=== PATIENT | female | born 1955 | race Caucasian/White ===

== ENCOUNTER → 2017-08-09 | Outpatient (CLI) | payer OTHER ==
[~2017-08-09] MED LIST: ACET500; ALBU90OI INH; ASPI81CH PO; ATORVASTATIN CA20 MG PO; BUPR100ER PO; CALCAVITD PO; FERR325 PO; FLUT110OIA INH; FURO20 PO; GABA300 PO; HYDR-86 PO; IBUP400 PO; IBUP800 PO; Lisinopril2.5 MG; NIFE60ER PO; OMEP20ER; Prinivil10 MG PO; RANI150 PO; SULTRIDS PO; TRAM50 PO; TRAZ100 PO; TRAZ50 PO
== END | disposition home or self-care (01) ==
LOC: LAB UCHC 17:17
DX: R35.0 Frequency of micturition (principal)
CPT/HCPCS: 87077; 87086; 87186

== ENCOUNTER → 2017-09-02 | Outpatient (CLI) | payer OTHER | END | disposition home or self-care (01) | LOC: LAB UCHC 12:22 | DX: R15.9 Full incontinence of feces (principal) | CPT/HCPCS: 87015; 87045; 87046; 87177; 87205; 87209; 87493; 87899 ==

== ENCOUNTER → 2017-11-17 | Outpatient (CLI) | payer OTHER | END | disposition home or self-care (01) | LOC: PLD 11:34 → LAB SHORT 11:34 | DX: C44.722 Squamous cell carcinoma of skin of right lower limb, including hip (principal) | CPT/HCPCS: 88305 ==

== ENCOUNTER → 2018-11-08 | Outpatient (CLI) | payer OTHER | END | disposition home or self-care (01) | LOC: PLD 08:30 → LAB SHORT 08:30 | DX: D04.39 Carcinoma in situ of skin of other parts of face (principal) | CPT/HCPCS: 88305 ==

== ENCOUNTER → 2019-06-14 | Outpatient (CLI) | payer OTHER ==
[2019-06-14 19:34] LABS: BASOPHILS ABSOLUTE AUTO 0.05 K/mm3 (0.00-0.23); BASOPHILS PERCENT AUTO 1 % (0-2); EOSINOPHILS ABSOLUTE AUTO 0.31 K/mm3 (0.00-0.68); EOSINOPHILS PERCENT AUTO 5 % (0-6); Hematocrit 33.5 % (33.0-51.0); Hemoglobin 10.8 g/dL (11.5-16.0); IMMATURE GRAN ABSOLUTE AUTO 0.01 K/mm3 (0.00-0.10); IMMATURE GRAN PERCENT AUTO 0 % (0-1); LYMPHOCYTES ABSOLUTE AUTO 1.42 K/mm3 (0.84-5.20); LYMPHOCYTES PERCENT AUTO 24 % (21-46); MONOCYTES ABSOLUTE AUTO 0.41 K/mm3 (0.16-1.47); MONOCYTES PERCENT AUTO 7 % (4-13); Mean Corpuscular HGB 32.3 pg (26.0-34.0); Mean Corpuscular HGB Conc 32.2 g/dL (31.5-36.5); Mean Corpuscular Volume 100 fL (80-100); NEUTROPHILS ABSOLUTE AUTO 3.61 K/mm3 (1.96-9.15); NEUTROPHILS PERCENT AUTO 62 % (41-73); Platelet Count 253 K/mm3 (150-400); RDW Coefficient Variation 12.1 % (11.7-14.2); RDW Standard Deviation 44.4 fL (35.1-46.3); Red Blood Cell Count 3.34 M/mm3 (3.80-5.20); White Blood Cell Count 5.81 K/mm3 (4.00-11.30)
[2019-06-14 19:58] LABS: Bun/Creatinine Ratio 22.5 (12.0-20.0); Calcium, Blood 8.3 mg/dL (8.5-10.1); Creatinine, Blood 1.42 mg/dL (0.40-1.00); Potassium, Blood 4.7 mmol/L (3.5-5.5)
== END | disposition home or self-care (01) ==
LOC: LAB UCHC 15:25 → LAB SHORT 15:25
PROVIDERS: Podiatrist Foot & Ankle Surgery
DX: Z01.812 Encounter for preprocedural laboratory examination (principal); M77.40 Metatarsalgia, unspecified foot; M77.9 Enthesopathy, unspecified
CPT/HCPCS: 36415; 80048; 85025

== ENCOUNTER → 2020-09-03 | Outpatient (CLI) | payer OTHER ==
[~2020-09-03] MED LIST changes: +ACET500 PO; -ASPI81CH PO; +Aspirin EC81 MG PO; +CENTRUM SILVER1 EAC2 PO; +CRANBERRY CONC1 EAC1 PO; +DOCU100 PO; +DULO60 PO; -FLUT110OIA INH; +FOLI1 PO; +Flovent 220 Ora12 GM INH; +HYDRA25 PO; +LISI10 PO; +LOPE2C PO; +Loratadine10 MG PO; +NITR100CA PO; -OMEP20ER; +OMEP20ER PO; +ONDA4ODT MM; +POTA8; +PROBIOTIC250 MG PO; +SODCHL1 PO; +TIOT18 INH; +VITAMIN B1 PO
[2020-09-04 14:10] LABS: HPV 16 Negative (Negative); HPV 18 Negative (Negative); HPV OTHER HR TYPES Negative (Negative)
== END | disposition home or self-care (01) ==
LOC: LAB SHORT 14:22 → LAB 14:22
PROVIDERS: Physician Assistant
DX: Z01.419 Encounter for gynecological examination (general) (routine) without abnormal findings (principal)
CPT/HCPCS: 87624; G0123

== ENCOUNTER 2020-10-20 08:20 | Day surgery (SDC) | payer OTHER ==
[~2020-10-20] VITALS: Ht 157.5 cm; Wt 69.4 kg
[~2020-10-20 08:20] MED LIST changes: -CRANBERRY CONC1 EAC1 PO; -DOCU100 PO; -HYDRA25 PO; -NITR100CA PO; -ONDA4ODT MM; -SODCHL1 PO
--- NOTE | 2020-10-20 11:41 | NUR ---
10/20/20 1141 SHITAL MAHONEY History, Chart, Medications and Allergies reviewed before start of procedure. 3-LEAD EKG REVIEWED WITH PHYSICIAN PRIOR TO START OF PROCEDURE. O2 VIA N/C INTACT THROUGHOUT SEDATION/PROCEDURE. MONITOR INTACT WITH CONTINUOUS PULSE OXIMETRY AND INTERMITTENT BP. PATIENT DETERMINED TO BE ASA APPROPRIATE FOR PROPOFOL SEDATION PRIOR TO START OF PROCEDURE BY DR. DELGADO.
--- NOTE | 2020-10-20 13:03 | NUR ---
PT TOLERATES FOOD AND DRINK s DIFFICULTY. NO TROUBLE SWALLING NOTED. DENIES ABD PAIN. GIVEN DC INSTRUCTIONS. VERBALIZES AN UNDERSTANDING s QUESTIONS. IV DC'D, CATH INTACT AND PRESSURE DRESSING APPLIED. PT DRESSES SELF s DIFFICULTY. TO AND FROM RESTROOM VIA WC. OTD IN NAD VIA WC, ESCORTED BY RN. S/O RIDE HOME.
== END 2020-10-20 23:24 | disposition home or self-care (01) ==
LOC: ORSCMMR 08:20 → ORD 09:30 → ORSCMMR 09:30
PROVIDERS: Internal Medicine Gastroenterology
PROC: 0DJD8ZZ Inspection of Lower Intestinal Tract, Via Natural or Artificial Opening Endoscopic (ICD-10-PCS; principal; 2020-10-20 09:30)
PROC: 0DB58ZX Excision of Esophagus, Via Natural or Artificial Opening Endoscopic, Diagnostic (ICD-10-PCS; principal; 2020-10-20 09:30)
DX: R13.14 Dysphagia, pharyngoesophageal phase (principal); K21.00 Gastro-esophageal reflux disease with esophagitis, without bleeding; B37.81 Candidal esophagitis; K44.9 Diaphragmatic hernia without obstruction or gangrene; Z12.11 Encounter for screening for malignant neoplasm of colon; K57.30 Diverticulosis of large intestine without perforation or abscess without bleeding; Z86.010 Personal history of colon polyps; Z86.73 Personal history of transient ischemic attack (TIA), and cerebral infarction without residual deficits; I10 Essential (primary) hypertension; E78.00 Pure hypercholesterolemia, unspecified; F32.9 Major depressive disorder, single episode, unspecified; J44.9 Chronic obstructive pulmonary disease, unspecified; Z87.891 Personal history of nicotine dependence; Z79.82 Long term (current) use of aspirin; Z79.899 Other long term (current) drug therapy
CPT/HCPCS: 43239; G0105; 88305; 88312; A9270; J2250; J2704; J7120

== ENCOUNTER 2020-12-02 22:34 | Inpatient (IN) | payer MEDICARE, OTHER ==
[~2020-12-02] VITALS: Ht 157.5 cm; Wt 66.5 kg
[2020-12-03 00:30] LABS: BASOPHILS ABSOLUTE AUTO 0.01 K/mm3 (0.00-0.23); BASOPHILS PERCENT AUTO 0 % (0-2); EOSINOPHILS ABSOLUTE AUTO 0.04 K/mm3 (0.00-0.68); EOSINOPHILS PERCENT AUTO 1 % (0-6); Hematocrit 34.3 % (33.0-51.0); Hemoglobin 11.7 g/dL (11.5-16.0); IMMATURE GRAN ABSOLUTE AUTO 0.04 K/mm3 (0.00-0.10); IMMATURE GRAN PERCENT AUTO 1 % (0-1); LYMPHOCYTES ABSOLUTE AUTO 1.31 K/mm3 (0.84-5.20); LYMPHOCYTES PERCENT AUTO 22 % (21-46); MONOCYTES ABSOLUTE AUTO 0.41 K/mm3 (0.16-1.47); MONOCYTES PERCENT AUTO 7 % (4-13); Mean Corpuscular HGB 32.8 pg (26.0-34.0); Mean Corpuscular HGB Conc 34.1 g/dL (31.5-36.5); Mean Corpuscular Volume 96 fL (80-100); Mean Platelet Volume 8.6 fL (9.1-12.4); NEUTROPHILS ABSOLUTE AUTO 4.18 K/mm3 (1.96-9.15); NEUTROPHILS PERCENT AUTO 70 % (41-73); Platelet Count 222 K/mm3 (150-400); RDW Coefficient Variation 11.9 % (11.7-14.2); RDW Standard Deviation 42.3 fL (35.1-46.3); Red Blood Cell Count 3.57 M/mm3 (3.80-5.20); White Blood Cell Count 5.99 K/mm3 (4.00-11.30)
[2020-12-03 00:38] LABS: Source, Urine Clean Catch
[2020-12-03 00:42] LABS: Appearance, Urine Clear (Clear); Bilirubin, Urine Neg (Neg); Blood, Urine 2+ (Neg); Color, Urine Yellow (P-Yellow); Glucose Qualitative, Urine Neg (Neg); Ketones, Urine Neg (Neg); Leukocyte Esterase, Urine 3+ (Neg); Nitrite, Urine Pos (Neg); Protein, Urine Neg (Neg); Specific Gravity, Urine 1.005 (1.003-1.022); Urobilinogen, Urine NORM (Normal); pH, Urine 6.5 (5.0-8.0)
[2020-12-03 00:51] LABS: Alanine Aminotransfer (ALT/SGP 222 U/L (12-78); Albumin, Blood 3.6 g/dL (3.4-5.0); Albumin/Globulin Ratio 0.9 (0.8-1.8); Alk Phos 175 U/L (50-136); Anion Gap 4 mmol/L (6-16); Aspartate Aminotrans (AST/SGOT 340 U/L (12-37); Bilirubin, Total 0.5 mg/dL (0.1-1.0); Blood Urea Nitrogen 16 mg/dL (8-24); Bun/Creatinine Ratio 16.8 (12.0-20.0); CO2, Blood 24 mmol/L (21-32); Chloride, Blood 89 mmol/L (98-108); Creatinine, Blood 0.95 mg/dL (0.40-1.00); Globulin, Blood 3.8 g/dL (2.2-4.0); Glomerular Filtration Rate >60 (60-); Glucose, Blood 107 mg/dL (70-99); Potassium, Blood 5.2 mmol/L (3.5-5.5); Sodium, Blood 117 mmol/L (136-145); Total Protein, Blood 7.4 g/dL (6.4-8.2)
[2020-12-03 00:54] LABS: Bacteria Many /hpf; Red Blood Cells, Urine 0-2 /hpf (0-2); Squamous Epithelial Cells Few /hpf (Few)
--- NOTE | 2020-12-03 06:55 | NUR ---
CARE ASSUMPTION/ SHIFT SUMMARY PT ARRIVED TO THE UNIT DENYING ANY PAIN OR NAUSEA. PT WAS ABLE TO AMBULATE UNASSISTED TO BATHROOM AND VOID. O2 SATS >92% ON RM AIR. BP ELEVATED BUT BP MEDICATIONS DUE THIS AM. PT DENYING ANY NEEDS AT THIS TIME. TELE SHOWING NSR IN 70'S W PVC'S. WILL REPORT TO ONCOMING RN.
[2020-12-03 08:17] LABS: BASOPHILS ABSOLUTE AUTO 0.02 K/mm3 (0.00-0.23); BASOPHILS PERCENT AUTO 0 % (0-2); EOSINOPHILS ABSOLUTE AUTO 0.03 K/mm3 (0.00-0.68); EOSINOPHILS PERCENT AUTO 1 % (0-6); Hematocrit 31.6 % (33.0-51.0); Hemoglobin 10.8 g/dL (11.5-16.0); IMMATURE GRAN ABSOLUTE AUTO 0.03 K/mm3 (0.00-0.10); IMMATURE GRAN PERCENT AUTO 1 % (0-1); LYMPHOCYTES PERCENT AUTO 24 % (21-46); MONOCYTES ABSOLUTE AUTO 0.26 K/mm3 (0.16-1.47); MONOCYTES PERCENT AUTO 6 % (4-13); Mean Corpuscular HGB 32.7 pg (26.0-34.0); Mean Corpuscular HGB Conc 34.2 g/dL (31.5-36.5); Mean Corpuscular Volume 96 fL (80-100); Mean Platelet Volume 8.8 fL (9.1-12.4); NEUTROPHILS ABSOLUTE AUTO 3.11 K/mm3 (1.96-9.15); NEUTROPHILS PERCENT AUTO 68 % (41-73); Platelet Count 206 K/mm3 (150-400); RDW Coefficient Variation 11.9 % (11.7-14.2); RDW Standard Deviation 41.9 fL (35.1-46.3); White Blood Cell Count 4.55 K/mm3 (4.00-11.30)
[2020-12-03 08:26] LABS: Anion Gap 5 mmol/L (6-16); Blood Urea Nitrogen 14 mg/dL (8-24); Bun/Creatinine Ratio 14.8 (12.0-20.0); CO2, Blood 26 mmol/L (21-32); Calcium, Blood 7.8 mg/dL (8.5-10.1); Chloride, Blood 92 mmol/L (98-108); Creatinine, Blood 0.94 mg/dL (0.40-1.00); Glomerular Filtration Rate >60 (60-); Glucose, Blood 106 mg/dL (70-99); Potassium, Blood 4.9 mmol/L (3.5-5.5); Sodium, Blood 123 mmol/L (136-145)
--- NOTE | 2020-12-03 18:41 | NUR ---
SHIFT SUMMARY PT A/O X4; PLEASANT AND COOPERATIVE WITH CARE. SBA/IND IN THE ROOM. NA+ CRITICALLY LOW AND HAS BEEN STEADILY MAKING IMPROVEMENTS. LAST NA+ WAS 125. PT REPORTS FEELING FATIGUED TODAY. UTI NOTED. PT HYPERTENSIVE AT TIMES BUT LAST VSS. WILL REPORT TO NOC RN.
[2020-12-04 04:04] LABS: BASOPHILS ABSOLUTE AUTO 0.02 K/mm3 (0.00-0.23); BASOPHILS PERCENT AUTO 1 % (0-2); EOSINOPHILS ABSOLUTE AUTO 0.03 K/mm3 (0.00-0.68); EOSINOPHILS PERCENT AUTO 1 % (0-6); Hemoglobin 10.5 g/dL (11.5-16.0); IMMATURE GRAN ABSOLUTE AUTO 0.02 K/mm3 (0.00-0.10); IMMATURE GRAN PERCENT AUTO 1 % (0-1); LYMPHOCYTES ABSOLUTE AUTO 1.26 K/mm3 (0.84-5.20); LYMPHOCYTES PERCENT AUTO 29 % (21-46); MONOCYTES ABSOLUTE AUTO 0.31 K/mm3 (0.16-1.47); MONOCYTES PERCENT AUTO 7 % (4-13); Mean Corpuscular HGB 32.8 pg (26.0-34.0); Mean Corpuscular HGB Conc 33.9 g/dL (31.5-36.5); Mean Corpuscular Volume 97 fL (80-100); NEUTROPHILS ABSOLUTE AUTO 2.68 K/mm3 (1.96-9.15); NEUTROPHILS PERCENT AUTO 62 % (41-73); Platelet Count 206 K/mm3 (150-400); RDW Coefficient Variation 12.2 % (11.7-14.2); RDW Standard Deviation 43.7 fL (35.1-46.3); White Blood Cell Count 4.32 K/mm3 (4.00-11.30)
[2020-12-04 04:33] LABS: Albumin, Blood 2.9 g/dL (3.4-5.0); Anion Gap 5 mmol/L (6-16); Blood Urea Nitrogen 12 mg/dL (8-24); Bun/Creatinine Ratio 12.3 (12.0-20.0); CO2, Blood 24 mmol/L (21-32); Calcium, Blood 7.7 mg/dL (8.5-10.1); Chloride, Blood 98 mmol/L (98-108); Creatinine, Blood 0.98 mg/dL (0.40-1.00); Glomerular Filtration Rate >60 (60-); Glucose, Blood 101 mg/dL (70-99); Magnesium, Blood 1.9 mg/dL (1.6-2.4); Phosphorus, Blood 2.2 mg/dL (2.5-4.9); Potassium, Blood 4.9 mmol/L (3.5-5.5); Sodium, Blood 127 mmol/L (136-145)
--- NOTE | 2020-12-04 04:51 | NUR ---
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 HELD PT'S 2100 SODIUM TAB DUE TO 11 MEQ RISE IN Na IN LESS THAN 24HR HOWEVER Na IS DOWN 1 MEQ THIS AM FROM LAST NIGHT. PT'S BP STABLE 140'S/60'S. TELE SHOWING NSR IN THE 80'S THIS SHIFT. O2 SATS >92% ON RM AIR. PT SWALLOWING PILLS FINE W NO S/S OF DYSPHAGIA. NO NAUSEA OR HEADACHES REPORTED BY PT THIS SHIFT. WILL REPORT TO ONCOMING RN.
--- NOTE | 2020-12-04 09:06 | NUR ---
pt sitting up in bed for breakfast, a/ox3, [place] pleasant and coopertive with care, follows commands well, denies pain, reports her night was ok, lungs are clear dim in bases, on r/a, resp even and unlabored, no cough noted, hrr, tele in place running sr per monitor, see strip, no edema noted, ppp+1, cap refill <3sec, v.s. stable, afebrile, iv site is clear and patent, btx4, abd flat soft nontender, voids without diff, skin is very frail with scattered bruisings to b/l arms, skin tear to rfa with dressing in place, swallows po meds one at a time without diff, gayla jane, call light in reach.
[2020-12-04] MEDS ORDERED: CRANBERRY CONC1 EAC1 PO (12:43)
[2020-12-04] MEDS ORDERED: DOCU100 PO (12:44)
[2020-12-04] MEDS ORDERED: HYDRA25 PO (12:44)
[2020-12-04] MEDS ORDERED: NITR100CA PO (12:45)
[2020-12-04] MEDS ORDERED: ONDA4ODT MM (13:05)
[2020-12-04] MEDS ORDERED: SODCHL1 PO (13:05)
--- NOTE | 2020-12-04 14:12 | NUR ---
PT HAS BEEN DISCHARGED TO HOME, FAXED NEW MEDICATIONS TO [facility] IN [place], IV REMOVED INTACT, NEW DRESSING PLACED ON SKIN TEAR TO RIGHT FA, WENT OVER DISCHARGE INSTRUCTIONS WITH HER, SHE VERBALIZED UNDERSTANDING. LEFT VIA WHEELCHAIR WITH FILTER PRESS TENDER HEAD IN ATTENDENCE.
== END 2020-12-04 14:14 | disposition home or self-care (01) | DRG 641 ==
LOC: ER 22:34 → ERHOLD 12-03 03:45 → PCU 12-03 05:52
PROVIDERS: Family Medicine; Physician Assistant; ADMIT Internal Medicine
DX: E87.1 Hypo-osmolality and hyponatremia (principal); N18.30 Chronic kidney disease, stage 3 unspecified; D52.9 Folate deficiency anemia, unspecified; G89.29 Other chronic pain; I69.398 Other sequelae of cerebral infarction; I35.2 Nonrheumatic aortic (valve) stenosis with insufficiency; Z98.51 Tubal ligation status; Z79.82 Long term (current) use of aspirin; Z79.899 Other long term (current) drug therapy; Z87.891 Personal history of nicotine dependence; M54.9 Dorsalgia, unspecified
CPT/HCPCS: 36415; 80048; 80053; 80069; 81001; 83735; 83930; 84145; 84295; 84443; 85025; 87077; 87086; 87186; 94640; 94760; 99284; A9270; J1650; J7030

== ENCOUNTER → 2021-02-23 | Outpatient (CLI) | payer OTHER ==
[~2021-02-23] MED LIST changes: +CRANBERRY CONC1 EAC1 PO; +DOCU100 PO; +HYDRA25 PO; +NITR100CA PO; +ONDA4ODT MM; +SODCHL1 PO
== END | disposition home or self-care (01) ==
LOC: LAB SHORT 11:55
DX: D04.72 Carcinoma in situ of skin of left lower limb, including hip (principal)
CPT/HCPCS: 88305

== ENCOUNTER 2021-12-26 17:56 | Inpatient (IN) | payer OTHER ==
[~2021-12-26] VITALS: Ht 160 cm; Wt 61.7 kg
[2021-12-26 19:02] LABS: Albumin, Blood 2.9 g/dL (3.4-5.0); Albumin/Globulin Ratio 0.8 (0.8-1.8); Bilirubin, Total 0.3 mg/dL (0.1-1.0); Bun/Creatinine Ratio 5.5 (12.0-20.0); Calcium, Blood 7.5 mg/dL (8.5-10.1); Creatinine, Blood 1.09 mg/dL (0.40-1.00); Globulin, Blood 3.7 g/dL (2.2-4.0); Potassium, Blood 3.9 mmol/L (3.5-5.5); Total Protein, Blood 6.6 g/dL (6.4-8.2)
[2021-12-26 20:23] LABS: BASOPHILS ABSOLUTE AUTO 0.02 K/mm3 (0.00-0.23); BASOPHILS PERCENT AUTO 0 % (0-2); EOSINOPHILS ABSOLUTE AUTO 0.02 K/mm3 (0.00-0.68); EOSINOPHILS PERCENT AUTO 0 % (0-6); Hematocrit 29.3 % (33.0-51.0); Hemoglobin 9.7 g/dL (11.5-16.0); IMMATURE GRAN ABSOLUTE AUTO 0.02 K/mm3 (0.00-0.10); IMMATURE GRAN PERCENT AUTO 0 % (0-1); LYMPHOCYTES ABSOLUTE AUTO 1.02 K/mm3 (0.84-5.20); LYMPHOCYTES PERCENT AUTO 20 % (21-46); MONOCYTES ABSOLUTE AUTO 0.51 K/mm3 (0.16-1.47); MONOCYTES PERCENT AUTO 10 % (4-13); Mean Corpuscular HGB 33.6 pg (26.0-34.0); Mean Corpuscular HGB Conc 33.1 g/dL (31.5-36.5); Mean Corpuscular Volume 101 fL (80-100); NEUTROPHILS ABSOLUTE AUTO 3.43 K/mm3 (1.96-9.15); NEUTROPHILS PERCENT AUTO 68 % (41-73); Platelet Count 188 K/mm3 (150-400); RDW Coefficient Variation 13.2 % (11.7-14.2); RDW Standard Deviation 49.5 fL (35.1-46.3); Red Blood Cell Count 2.89 M/mm3 (3.80-5.20); White Blood Cell Count 5.02 K/mm3 (4.00-11.30)
[2021-12-26 20:40] LABS: International Normalized Ratio 1.08; Prothrombin Time Results 11.3 Sec (9.7-11.5)
[2021-12-26 21:05] LABS: Influenza A, PCR NEGATIVE (NEGATIVE); Influenza B, PCR NEGATIVE (NEGATIVE); Resp Syncytial Virus, PCR NEGATIVE (NEGATIVE); SARS-Cov-2 (COVID-19) PCR, MMC NEGATIVE (NEGATIVE)
[2021-12-26] MEDS ORDERED: CELEXA40 M1 PO (22:10)
[2021-12-26] MEDS ORDERED: B12-FOLIC ACID1 EACH PO (22:12)
[2021-12-27 06:18] LABS: Source, Urine Straight Cath
--- NOTE | 2021-12-27 06:18 | NUR ---
SUMMARY PT ARRIVED TO FLOOR IN NO DISTRESS AND COMFORTABLE. GARRIDO CATH WAS PLACED AND UA SENT. PT PAIN TX PER EMAR WITH RELIEF. PT HAS BEEN ABLE TO SLEEP WELL THIS SHIFT. PT NPO SINCE MN.
[2021-12-27 06:48] LABS: Appearance, Urine Clear (Clear); Bilirubin, Urine Neg (Neg); Blood, Urine 2+ (Neg); Color, Urine Yellow (P-Yellow); Glucose Qualitative, Urine Neg (Neg); Ketones, Urine Neg (Neg); Leukocyte Esterase, Urine Neg (Neg); Nitrite, Urine Neg (Neg); Protein, Urine Neg (Neg); Urobilinogen, Urine NORM (Normal)
[2021-12-27 07:03] LABS: Bacteria Not Seen /hpf; Red Blood Cells, Urine 0-2 /hpf (0-2); Squamous Epithelial Cells Not Seen /hpf (Few); White Blood Cells, Urine 0-2 /hpf (0-5)
[2021-12-27 07:14] LABS: BASOPHILS ABSOLUTE AUTO 0.01 K/mm3 (0.00-0.23); BASOPHILS PERCENT AUTO 0 % (0-2); EOSINOPHILS ABSOLUTE AUTO 0.02 K/mm3 (0.00-0.68); EOSINOPHILS PERCENT AUTO 0 % (0-6); Hematocrit 29.1 % (33.0-51.0); Hemoglobin 9.6 g/dL (11.5-16.0); IMMATURE GRAN ABSOLUTE AUTO 0.03 K/mm3 (0.00-0.10); IMMATURE GRAN PERCENT AUTO 0 % (0-1); LYMPHOCYTES ABSOLUTE AUTO 0.48 K/mm3 (0.84-5.20); LYMPHOCYTES PERCENT AUTO 5 % (21-46); MONOCYTES ABSOLUTE AUTO 0.53 K/mm3 (0.16-1.47); MONOCYTES PERCENT AUTO 6 % (4-13); Mean Corpuscular HGB 33.1 pg (26.0-34.0); Mean Corpuscular Volume 100 fL (80-100); Mean Platelet Volume 9.8 fL (9.1-12.4); NEUTROPHILS ABSOLUTE AUTO 8.33 K/mm3 (1.96-9.15); NEUTROPHILS PERCENT AUTO 89 % (41-73); Platelet Count 224 K/mm3 (150-400); RDW Coefficient Variation 13.2 % (11.7-14.2); RDW Standard Deviation 48.6 fL (35.1-46.3)
[2021-12-27 07:40] LABS: Albumin, Blood 2.8 g/dL (3.4-5.0); Bilirubin, Total 0.4 mg/dL (0.1-1.0); Bun/Creatinine Ratio 5.7 (12.0-20.0); Creatinine, Blood 1.22 mg/dL (0.40-1.00); Globulin, Blood 2.9 g/dL (2.2-4.0); Potassium, Blood 3.9 mmol/L (3.5-5.5); Total Protein, Blood 5.7 g/dL (6.4-8.2)
--- NOTE | 2021-12-27 07:42 | NUR ---
0655-recvd report from previous shift RN Jose, pt a/o x 4, pleasant/cooperative, painful to move. bed in lowest position, bed rails up x 2, call light within reach. 07-this RN learned surgery is postponed until tomorrow r/t surgeon performing emergency procedures most of last night's shift. plan is to have surgical interventions 12/28. ordered pt breakfast tray.
--- NOTE | 2021-12-27 13:49 | NUR ---
pt resting comfortably, viewing her cell phone, finished lunch.
--- NOTE | 2021-12-27 16:47 | NUR ---
SHIFT SUMMARY: PT REMAINED A/0 X 4, PLEASANT/COOPERATIVE, VSS, NO ACUTE CHANGES. PT TOLERATED PO INTAKE, DENIES N/V. PT STATES PAIN CONTROLLED "DECENTLY WELL, BUT STILL PAINFUL" VIA MAR. PT SO VISITED THIS SHIFT X 2. PT GARRIDO CATHETER REMAINED PATENT/DRAINING CLEAR DARK YELLOW URINE >350 ML THIS SHIFT. CAPILLARY REFILL <3 SECOND AFFECTED FOOT.
[2021-12-28 04:23] LABS: Hematocrit 29.1 % (33.0-51.0); Hemoglobin 9.4 g/dL (11.5-16.0); Mean Corpuscular HGB 32.9 pg (26.0-34.0); Mean Corpuscular HGB Conc 32.3 g/dL (31.5-36.5); Mean Corpuscular Volume 102 fL (80-100); Mean Platelet Volume 9.8 fL (9.1-12.4); Platelet Count 215 K/mm3 (150-400); RDW Coefficient Variation 13.2 % (11.7-14.2); RDW Standard Deviation 49.7 fL (35.1-46.3); Red Blood Cell Count 2.86 M/mm3 (3.80-5.20)
[2021-12-28 04:35] LABS: Bun/Creatinine Ratio 7.9 (12.0-20.0); Calcium, Blood 7.5 mg/dL (8.5-10.1); Creatinine, Blood 1.26 mg/dL (0.40-1.00); Potassium, Blood 4.4 mmol/L (3.5-5.5)
--- NOTE | 2021-12-28 04:46 | NUR ---
SHIFT SUMMARY A/O X4- BEDREST AT THIS TIME DUE TO L HIP FX. GARRIDO IN PLACE, DRAINING TO GRAVITY. TOLERATING PO INTAKE, NPO SINCE MIDNIGHT. PAIN MANAGED W/ PO PAIN MEDICATION. VITAL SIGNS STABLE. PLEASANT AND COOPERATIVE W/ CARE. WILL CONTINUE TO MONITOR AND REPORT TO ONCOMING RN.
--- NOTE | 2021-12-28 13:19 | NUR ---
PT HAS WET REDDENED AREA UNDER L BREAST.
--- NOTE | 2021-12-28 14:30 | NUR ---
PT'S SURGERY POST PONED UNTIL TOMORROW. MEDICATED PER ORDERS FOR PAIN, ORDERED LUNCH TRAY AND PROVIDED PEPSI AND WATER. CALL LIGHT IN REACH, DENIES ANY NEEDS AT THIS TIME.
--- NOTE | 2021-12-28 18:41 | NUR ---
SUMMARY NO ACUTE CHANGES T/O SHIFT. MEDICATED PT PER ORDERS FOR PAIN T/O DAY. DENIES SOB OR N/V. GARRIDO DRAINING DARK YELLOW URINE. PLAN FOR OR TOMORROW; NPO AFTER MN TONIGHT. CALL LIGHT IN REACH.
--- NOTE | 2021-12-28 19:20 | NUR ---
POOR URINE OUTPUT. PT HAD 175 ML URINE OUT FOR SHIFT. PLACED CALL OUT TO DR LEW.
[2021-12-29 04:26] LABS: Hematocrit 26.1 % (33.0-51.0); Hemoglobin 8.4 g/dL (11.5-16.0); Mean Corpuscular HGB 33.2 pg (26.0-34.0); Mean Corpuscular HGB Conc 32.2 g/dL (31.5-36.5); Mean Corpuscular Volume 103 fL (80-100); Mean Platelet Volume 9.8 fL (9.1-12.4); Platelet Count 208 K/mm3 (150-400); RDW Coefficient Variation 13.5 % (11.7-14.2); Red Blood Cell Count 2.53 M/mm3 (3.80-5.20)
--- NOTE | 2021-12-29 04:32 | NUR ---
SHIFT SUMMARY PT NPO SINCE MIDNIGHT FOR L HIP SURGERY TODAY. IVF INFUSING PER ORDERS. GARRIDO PRODUCING MINIMAL YELLOW URINE--M.D. AWARE. 2 ROXICODONE FOR PAIN MANAGEMENT. VSS. PT USES CALL LIGHT APPROPRIATELY.
[2021-12-29 05:48] LABS: Bun/Creatinine Ratio 9.9 (12.0-20.0); Calcium, Blood 7.4 mg/dL (8.5-10.1); Creatinine, Blood 1.52 mg/dL (0.40-1.00); Potassium, Blood 5.3 mmol/L (3.5-5.5)
--- NOTE | 2021-12-29 11:00 | NUR ---
NOTIFIED OF DECREASED KIDNEY FUNCTION AND DECREASED URINE OUTPUT.
--- NOTE | 2021-12-29 12:19 | NUR ---
PATIENT STATES THEY ARE COMFORTABLE IN BED AND DENIES PAIN AT REST.
--- NOTE | 2021-12-29 14:15 | NUR ---
12/29/21 1415 Gaurang Henry [employer] DRESSING PLACED ON LEFT KNEE. PREVIOUS DRESSING REMOVED WITH SURGICAL DRAPES.
--- NOTE | 2021-12-29 15:00 | NUR ---
PT ARRIVED BACK TO THE ROOM FROM PACU AT APPROXIMATELY 1500. PT DROWSY BUT AWAKENS WHEN SPOKEN TO, CONFUSED ABOUT SOME DETAILS OF HER STAY. BED ALARM ON. PT COMPLAINS OF PAIN WHEN AWAKE BUT QUICKLY FALLS BACK TO SLEEP AND APPEARS TO REST COMFORTABLY WITHOUT GRIMACING OR SOUNDS OF DISCOMFORT. VSS.
--- NOTE | 2021-12-29 18:11 | NUR ---
PT LEFT FOR DAY SURGERY AT 1207.
--- NOTE | 2021-12-29 18:13 | NUR ---
SHIFT SUMMARY PT IS POD#0 FROM L HIP REPAIR WITH DR. COTTON. PAIN HAS BEEN MANAGED WITH PO PAIN MEDICATION POST-OP. ICE PLACED ON HIP TO REDUCE SWELLING. PT'S MENTATION IS CLEARING POST-OP AND PT IS ALERT AND ORIENTED AT THIS TIME. BED ALARM REMAINS IN PLACE FOR SAFETY. PT IS TOLERATING PO. VSS. WILL MONITOR UNTIL REPORT TO AMANUEL RN.
--- NOTE | 2021-12-29 19:18 | NUR ---
DURING BEDSIDE REPORT DRESSING TO L KNEE ABRASION CHANGED. SOME YELLOW ESCHAR PRESENT TO WOUND BED OF LEFT KNEE, ALLYVEN DRESSING PLACED. ALLYVEN DRESSING PLACED OVER L WRIST SKIN TEAR.
[2021-12-30 04:32] LABS: Hematocrit 24.7 % (33.0-51.0); Hemoglobin 7.8 g/dL (11.5-16.0); Mean Corpuscular HGB 32.9 pg (26.0-34.0); Mean Corpuscular HGB Conc 31.6 g/dL (31.5-36.5); Mean Corpuscular Volume 104 fL (80-100); Mean Platelet Volume 9.8 fL (9.1-12.4); Platelet Count 217 K/mm3 (150-400); RDW Coefficient Variation 13.5 % (11.7-14.2); RDW Standard Deviation 50.9 fL (35.1-46.3); Red Blood Cell Count 2.37 M/mm3 (3.80-5.20); White Blood Cell Count 5.91 K/mm3 (4.00-11.30)
[2021-12-30 04:45] LABS: Bun/Creatinine Ratio 13.4 (12.0-20.0); Calcium, Blood 7.5 mg/dL (8.5-10.1); Creatinine, Blood 1.19 mg/dL (0.40-1.00); Potassium, Blood 5.6 mmol/L (3.5-5.5)
--- NOTE | 2021-12-30 05:23 | NUR ---
SHIFT SUMMARY A/O X3- POD1 L HIP REPAIR, AQUACEL IN PLACE, C/D/I. GARRIDO TO GRAVITY DRAINING CLEAR YELLOW URINE. TOLERATING PO INTAKE. LITTLE PAIN REPORTED THROUGHOUT SHIFT. VITAL SIGNS STABLE. PT RESTED WELL THROUGHOUT THE NIGHT. WILL CONTINUE TO MONITOR AND REPORT TO ONCOMING RN.
--- NOTE | 2021-12-30 06:40 | NUR ---
CHANGED AQUACEL DRESSINGS DUE TO BEING SATURATED THIS AM. PAIN MANAGED PER EMAR.
--- NOTE | 2021-12-30 18:03 | NUR ---
SHIFT SUMMARY: POD 1 LEFT HIP PINNING PATIENT IS A&OX4. VS ARE WNL AND IS ON RA. PAIN IS MANAGED WITH 2 GILLIAN PO. LEFT HIP HAS GAUZE AND ABD PAD WITH TAPE THAT IS C/D/I. SHE ALSO HAS A SMALLER INCISION BELOW THE LEFT HIP THAT HAS AN AQUACEL THAT IS C/D/I. PATIENT DENIES NUMBNESS AND TINGLING. PATIENT IS TO BE TOE TOUCH WT BEARING ON THE LEFT FOOT. SHE IS A 2 PERSON ASSIST WITH FWW AND GAIT BELT. PATIENT HAD HER GARRIDO TAKEN OUT EARLIER THIS MORNING BUT HAS NOT YET VOIDED. SHE HAS TRIED ON THE BSC TWICE WITH NO OUTPUT. PATIENT WAS BLADDER SCANNED AND ONLY HAD ABOUT 119ML SO NO STRAIGHT CATH NEEDED AT THIS TIME. ENCOURAGING MORE PO FLUID INTAKE. PATIENT IS TOLERATING PO INTAKE WITH NO NAUSEA OR VOMITING. PATIENT SHOULD HAVE PILLS WHOLE WITH APPLESAUCE. PATIENT ALSO HAS SCATTERED BRUISING ON BOTH ARMS AND LEGS. SHE ALSO HAS TWO ABRASIONS ONE ON HER LEFT BARLOW AND LEFT FOREARM THAT HAVE MEPLIEX THAT ARE C/D/I. CALLS APPROPRIATELY. PATIENT IS LAYING IN BED WITH CALL LIGHT IN REACH. THE PLAN IS TO HAVE THE PATIENT VOID WELL HAVE PAIN MANAGED. THEN SHE WILL BE DISCHARGED TO A SNF WHEN A BED IS AVAILABLE.
[2021-12-31 05:35] LABS: Hematocrit 23.2 % (33.0-51.0); Hemoglobin 7.6 g/dL (11.5-16.0); Mean Corpuscular HGB 33.6 pg (26.0-34.0); Mean Corpuscular HGB Conc 32.8 g/dL (31.5-36.5); Mean Corpuscular Volume 103 fL (80-100); Mean Platelet Volume 9.9 fL (9.1-12.4); Platelet Count 234 K/mm3 (150-400); RDW Coefficient Variation 13.6 % (11.7-14.2); RDW Standard Deviation 50.4 fL (35.1-46.3); Red Blood Cell Count 2.26 M/mm3 (3.80-5.20); White Blood Cell Count 6.82 K/mm3 (4.00-11.30)
[2021-12-31 05:57] LABS: Bun/Creatinine Ratio 13.4 (12.0-20.0); Calcium, Blood 7.7 mg/dL (8.5-10.1); Creatinine, Blood 1.12 mg/dL (0.40-1.00)
--- NOTE | 2021-12-31 06:01 | NUR ---
SUMMARY NO NEW ISSUES NOTED. PT HAS BEEN RESTING WELL. PT PAIN MANAGED PER EMAR. PT CURRENTLY RESTING IN NO DISTRESS. CALL LIGHT IN REACH.
--- NOTE | 2021-12-31 16:27 | NUR ---
LOW BP IRONING PLEATER NOTIFIED THIS RN OF LOW BP ABOUT 90/60. SEE VITALS. RECHECKED BP WITH SAME RESULT. PATIENT REPORTS FEELING SLIGHTLY LIGHT-HEADED. CALLED DR BARRIOS. DR BARRIOS DECIDED TO KEEP PATIENT OVERNIGHT, GIVE 1L BOLUS OF NS OVER 2 HOURS, AND RECHECK CBC AND CMP IN AM. ORDERS PLACED. PATIENT AND CARE MANAGEMENT NOTIFIED.
[2021-12-31 16:58] LABS: SARS-Cov-2 (COVID-19) PCR, MMC NEGATIVE (NEGATIVE)
--- NOTE | 2021-12-31 17:13 | NUR ---
SHIFT SUMMARY PATIENT ALERT AND ORIENTED THROUGHOUT SHIFT. TOLERATING REGULAR DIET AND LIQUIDS. VOIDING WELL. BM LAST SHIFT. DRESSINGS TO LEFT HIP CHANGED THIS SHIFT. 1 PERSON SBA TO PIVOT TRANSFER FROM BED TO COMMODE AND RECLINER. LOW BP TOWARD END OF SHIFT BUMPED SNF DISCHARGE TO TOMORROW 01/01/22. CURRENTLY RUNNING IN 1L BOLUS OF NS OVER 2 HOURS. WILL RECHECK LABS IN AM.
[2022-01-01 04:43] LABS: BASOPHILS ABSOLUTE AUTO 0.02 K/mm3 (0.00-0.23); BASOPHILS PERCENT AUTO 0 % (0-2); EOSINOPHILS ABSOLUTE AUTO 0.12 K/mm3 (0.00-0.68); EOSINOPHILS PERCENT AUTO 2 % (0-6); Hematocrit 24.6 % (33.0-51.0); Hemoglobin 7.8 g/dL (11.5-16.0); IMMATURE GRAN ABSOLUTE AUTO 0.07 K/mm3 (0.00-0.10); IMMATURE GRAN PERCENT AUTO 1 % (0-1); LYMPHOCYTES ABSOLUTE AUTO 0.89 K/mm3 (0.84-5.20); LYMPHOCYTES PERCENT AUTO 12 % (21-46); MONOCYTES ABSOLUTE AUTO 0.68 K/mm3 (0.16-1.47); MONOCYTES PERCENT AUTO 9 % (4-13); Mean Corpuscular HGB 33.1 pg (26.0-34.0); Mean Corpuscular HGB Conc 31.7 g/dL (31.5-36.5); Mean Corpuscular Volume 104 fL (80-100); Mean Platelet Volume 9.8 fL (9.1-12.4); NEUTROPHILS ABSOLUTE AUTO 5.84 K/mm3 (1.96-9.15); NEUTROPHILS PERCENT AUTO 77 % (41-73); NRBC ABSOLUTE 0.02 K/mm3 (0.00-0.02); NRBC Auto 0.3 /100 WBC (0.0-0.2); Platelet Count 278 K/mm3 (150-400); RDW Standard Deviation 53.2 fL (35.1-46.3); Red Blood Cell Count 2.36 M/mm3 (3.80-5.20); White Blood Cell Count 7.62 K/mm3 (4.00-11.30)
[2022-01-01 05:18] LABS: Albumin/Globulin Ratio 0.6 (0.8-1.8); Bilirubin, Total 0.4 mg/dL (0.1-1.0); Bun/Creatinine Ratio 12.1 (12.0-20.0); Calcium, Blood 8.3 mg/dL (8.5-10.1); Creatinine, Blood 1.16 mg/dL (0.40-1.00); Globulin, Blood 3.2 g/dL (2.2-4.0); Potassium, Blood 4.9 mmol/L (3.5-5.5); Total Protein, Blood 5.2 g/dL (6.4-8.2)
[2022-01-01 12:25] LABS: SARS-Cov-2 (COVID-19) PCR, MMC NEGATIVE (NEGATIVE)
--- NOTE | 2022-01-01 13:00 | NUR ---
DISCHARGE NOTE: PATIENT IS BEING DISCHARGED AND TRANSPORTED TO [facility] IN A WHEELCHAIR. THIS NURSE TALKED TO HUSSAIN JOSEPH AT [facility] AND GAVE REPORT TO HER. HUSSAIN RN STATED SHE HAD NO FURTHER QUESTIONS ABOUT THE PATIENT. PATIENT IS A&OX4. VS ARE WNL AND IS ON RA. PAIN IS MANAGED WITH PO PAIN MEDICATIONS. LEFT HIP HAS TWO INCISION SITES. ONE WITH A SMALL AQUACEL DRESSING THAT IS C/D/I. THE BIGGER LEFT HIP INCISION HAS GAUZE, ABD PAD, AND TAPE IN PLACE THAT IS C/D/I. THE BIGGER INCISION HAS CLEAR/RED DRAINAGE THAT DR. COTTON IS AWARE OF. PATIENT IS A 2 PERSON ASSIST WITH FWW AND GAIT BELT. SHE IS TOLERATING PO INTAKE AND IS VOIDING. IV WAS TAKEN OUT AND WNL. PATIENT HAS HER PERSONAL ITEMS GATHERED AND IN BAGS.
== END 2022-01-01 13:00 | DRG 481 ==
LOC: ER 17:56 → SURS 20:37
PROVIDERS: Emergency Medicine; Internal Medicine; Orthopaedic Surgery; ADMIT Internal Medicine
PROC: 0QS636Z Reposition Right Upper Femur with Intramedullary Internal Fixation Device, Percutaneous Approach (ICD-10-PCS; principal; 2021-12-29 12:30)
DX: S72.142A Displaced intertrochanteric fracture of left femur, initial encounter for closed fracture (principal); E87.1 Hypo-osmolality and hyponatremia; E87.2 Acidosis; Z20.822 Contact with and (suspected) exposure to COVID-19; I95.9 Hypotension, unspecified; I12.9 Hypertensive chronic kidney disease with stage 1 through stage 4 chronic kidney disease, or unspecified chronic kidney disease; N18.30 Chronic kidney disease, stage 3 unspecified; D63.1 Anemia in chronic kidney disease; E16.2 Hypoglycemia, unspecified; I35.0 Nonrheumatic aortic (valve) stenosis; E87.5 Hyperkalemia; E86.0 Dehydration; M54.9 Dorsalgia, unspecified; K21.9 Gastro-esophageal reflux disease without esophagitis; J44.9 Chronic obstructive pulmonary disease, unspecified; F32.A Depression, unspecified; E78.5 Hyperlipidemia, unspecified; Z98.890 Other specified postprocedural states; Z86.73 Personal history of transient ischemic attack (TIA), and cerebral infarction without residual deficits; Z98.51 Tubal ligation status; Z87.891 Personal history of nicotine dependence; Z79.82 Long term (current) use of aspirin; Z79.899 Other long term (current) drug therapy; W18.39XA Other fall on same level, initial encounter
CPT/HCPCS: 0241U; 36415; 73110; 73502; 80048; 80053; 81001; 82947; 84132; 85025; 85027; 85610; 85730; 92526; 92610; 93005; 93010; 94640; 94664; 94760; 96374; 96375; 96376; 97110; 97162; 97166; 97530; 97535; 99285-25; A9270; C1713; C1769; J0690; J1100; J1170; J2250; J2370; J2405; J2704; J2765; J2795; J3010; J7030; J7120; U0004

== ENCOUNTER 2022-03-17 10:22 | Emergency (ER) | payer OTHER ==
[~2022-03-17] VITALS: Ht 188 cm; Wt 61.7 kg
[~2022-03-17 10:22] MED LIST changes: +B12-FOLIC ACID1 EACH PO; +CELEXA40 M1 PO
[2022-03-17 12:18] LABS: BASOPHILS ABSOLUTE AUTO 0.02 K/mm3 (0.00-0.23); BASOPHILS PERCENT AUTO 0 % (0-2); EOSINOPHILS ABSOLUTE AUTO 0.13 K/mm3 (0.00-0.68); EOSINOPHILS PERCENT AUTO 1 % (0-6); Hematocrit 23.1 % (33.0-51.0); Hemoglobin 7.6 g/dL (11.5-16.0); IMMATURE GRAN ABSOLUTE AUTO 0.05 K/mm3 (0.00-0.10); IMMATURE GRAN PERCENT AUTO 0 % (0-1); LYMPHOCYTES ABSOLUTE AUTO 0.91 K/mm3 (0.84-5.20); LYMPHOCYTES PERCENT AUTO 7 % (21-46); MONOCYTES ABSOLUTE AUTO 0.53 K/mm3 (0.16-1.47); MONOCYTES PERCENT AUTO 4 % (4-13); Mean Corpuscular HGB 29.5 pg (26.0-34.0); Mean Corpuscular HGB Conc 32.9 g/dL (31.5-36.5); Mean Corpuscular Volume 90 fL (80-100); Mean Platelet Volume 11.5 fL (9.1-12.4); NEUTROPHILS ABSOLUTE AUTO 11.15 K/mm3 (1.96-9.15); NEUTROPHILS PERCENT AUTO 87 % (41-73); NRBC ABSOLUTE 0.02 K/mm3 (0.00-0.02); NRBC Auto 0.2 /100 WBC (0.0-0.2); Platelet Count 242 K/mm3 (150-400); RDW Coefficient Variation 15.8 % (11.7-14.2); RDW Standard Deviation 50.9 fL (35.1-46.3); Red Blood Cell Count 2.58 M/mm3 (3.80-5.20); White Blood Cell Count 12.79 K/mm3 (4.00-11.30)
[2022-03-17 12:30] LABS: Albumin, Blood 1.6 g/dL (3.4-5.0); Albumin/Globulin Ratio 0.5 (0.8-1.8); Bilirubin, Total 1.1 mg/dL (0.1-1.0); Bun/Creatinine Ratio 21.7 (12.0-20.0); Calcium, Blood 6.6 mg/dL (8.5-10.1); Creatinine, Blood 1.29 mg/dL (0.40-1.00); Globulin, Blood 3.1 g/dL (2.2-4.0); Potassium, Blood 3.4 mmol/L (3.5-5.5); Total Protein, Blood 4.7 g/dL (6.4-8.2)
== END 2022-03-17 12:50 | disposition home or self-care (01) ==
LOC: ER 10:22
PROVIDERS: Physician Assistant
DX: I95.9 Hypotension, unspecified (principal); K21.9 Gastro-esophageal reflux disease without esophagitis; J44.9 Chronic obstructive pulmonary disease, unspecified; E78.5 Hyperlipidemia, unspecified; Z86.73 Personal history of transient ischemic attack (TIA), and cerebral infarction without residual deficits; Z79.82 Long term (current) use of aspirin; Z79.899 Other long term (current) drug therapy
CPT/HCPCS: 36415; 80053; 84484; 85025; 93005; 93010; 96360; 99285-25; J7120

== ENCOUNTER 2022-04-02 13:23 | Emergency (ER) | payer OTHER ==
[~2022-04-02] VITALS: Ht 157.5 cm; Wt 55.3 kg
[2022-04-02 15:19] LABS: BASOPHILS ABSOLUTE AUTO 0.04 K/mm3 (0.00-0.23); BASOPHILS PERCENT AUTO 0 % (0-2); EOSINOPHILS ABSOLUTE AUTO 0.11 K/mm3 (0.00-0.68); EOSINOPHILS PERCENT AUTO 1 % (0-6); Hematocrit 29.4 % (33.0-51.0); Hemoglobin 9.4 g/dL (11.5-16.0); IMMATURE GRAN ABSOLUTE AUTO 0.07 K/mm3 (0.00-0.10); IMMATURE GRAN PERCENT AUTO 1 % (0-1); LYMPHOCYTES ABSOLUTE AUTO 1.31 K/mm3 (0.84-5.20); LYMPHOCYTES PERCENT AUTO 12 % (21-46); MONOCYTES ABSOLUTE AUTO 0.43 K/mm3 (0.16-1.47); MONOCYTES PERCENT AUTO 4 % (4-13); Mean Corpuscular HGB 30.4 pg (26.0-34.0); Mean Corpuscular Volume 95 fL (80-100); Mean Platelet Volume 10.4 fL (9.1-12.4); NEUTROPHILS ABSOLUTE AUTO 8.94 K/mm3 (1.96-9.15); NEUTROPHILS PERCENT AUTO 82 % (41-73); Platelet Count 405 K/mm3 (150-400); RDW Coefficient Variation 20.9 % (11.7-14.2); RDW Standard Deviation 72.5 fL (35.1-46.3); Red Blood Cell Count 3.09 M/mm3 (3.80-5.20)
[2022-04-02 16:08] LABS: Albumin, Blood 1.8 g/dL (3.4-5.0); Albumin/Globulin Ratio 0.4 (0.8-1.8); Bilirubin, Total 0.4 mg/dL (0.1-1.0); Bun/Creatinine Ratio 4.7 (12.0-20.0); Calcium, Blood 8.1 mg/dL (8.5-10.1); Creatinine, Blood 1.28 mg/dL (0.40-1.00); Globulin, Blood 4.7 g/dL (2.2-4.0); Potassium, Blood 3.5 mmol/L (3.5-5.5); Total Protein, Blood 6.5 g/dL (6.4-8.2)
[2022-04-02] MEDS ORDERED: CEPH500 PO ×2 (19:49→20:16)
== END 2022-04-02 20:35 | disposition home or self-care (01) ==
LOC: ER 13:23
PROVIDERS: Physician Assistant
DX: R22.42 Localized swelling, mass and lump, left lower limb (principal); Z79.899 Other long term (current) drug therapy; Z79.82 Long term (current) use of aspirin; Z86.73 Personal history of transient ischemic attack (TIA), and cerebral infarction without residual deficits; Z87.891 Personal history of nicotine dependence; Z96.642 Presence of left artificial hip joint
CPT/HCPCS: 36415; 73701; 80053; 83605; 85025; 87040; 87070; 87075; 87077; 87186; 87205; 96374-59; 99284-25; A9270; J1170; Q9967

== ENCOUNTER 2022-04-04 18:53 | Emergency (ER) | payer OTHER ==
[~2022-04-04] VITALS: Ht 157.5 cm; Wt 57.6 kg
[~2022-04-04 18:53] MED LIST changes: +CEPH500 PO
== END 2022-04-05 01:52 | disposition home or self-care (01) ==
LOC: ER 18:53
DX: L76.34 Postprocedural seroma of skin and subcutaneous tissue following other procedure (principal); Y83.8 Other surgical procedures as the cause of abnormal reaction of the patient, or of later complication, without mention of misadventure at the time of the procedure; Y79.3 Surgical instruments, materials and orthopedic devices (including sutures) associated with adverse incidents; Z87.891 Personal history of nicotine dependence
CPT/HCPCS: 99282